=== PATIENT | male | born 1935 | race Caucasian/White ===

== ENCOUNTER 2019-11-29 01:07 | Observation (INO) | payer MEDICARE ==
[2019-11-29] MEDS ORDERED: Nitroglycerin 2% Ointment 1 INCH/1 GM Packet ONE (01:17)
[2019-11-29] MEDS ORDERED: Ondansetron ODT 4 MG TAB SL PRN (03:28)
[2019-11-29] MEDS ORDERED: Acetaminophen 325 MG TAB PO PRN (03:28)
[2019-11-29] MEDS ORDERED: Ondansetron PF 4 MG/2 ML Vial IVP PRN ×2 (03:28→09:54)
[2019-11-29 03:47] VITALS: BMI 26.9
[2019-11-29 05:44] LABS: Troponin I 0.041 ng/mL (< 0.028)
[2019-11-29] MEDS ORDERED: cloNIDine 0.1 MG TAB PO PRN (05:46)
[2019-11-29] MEDS ORDERED: hydrALAZINE 20 MG/ML VIAL SLOW IVP PRN ×2 (05:46→09:54)
[2019-11-29 08:48] LABS: Troponin I 0.032 ng/mL (< 0.028)
[2019-11-29] MEDS ORDERED: ADENOSINE 60 MG/20 ML VIAL ONE (09:53)
[2019-11-29] MEDS ORDERED: Acetaminophen 500 MG TAB PO PRN (09:54)
[2019-11-29] MEDS ORDERED: Labetalol HCl 100 MG/20 ML VIAL SLOW IVP PRN (09:54)
[2019-11-29] MEDS ORDERED: Nitroglycerin 0.4 MG TAB (25 Tab Bottle) SL PRN (09:54)
[2019-11-29] MEDS ORDERED: Ondansetron ODT 4 MG TAB PO PRN (09:54)
[2019-11-29] MEDS ORDERED: hydrALAZINE 25 MG TAB PO SCH (11:30)
--- NOTE | 2019-11-29 12:26 | HP ---
PRIMARY CARE PROVIDER: Formally, Dr. Barrett Vela. PRIMARY CORRECTIONAL LIEUTENANT: Paul Morgan MD CHIEF COMPLAINT: Dizziness and near-syncope. HISTORY OF PRESENT ILLNESS: This is an 84-year-old male, who initially presented to [facility] after noticing his blood pressure was elevated in the 225/110 range at home. The patient states he has felt intermittent dizziness and near syncopal events over the last week while ambulating or doing regular activities. The patient denied any margarito loss of consciousness, chest pain, lower extremity edema, unilateral weakness or difficulty with speech. The patient states that he was attending a Boat Show in [place], [place] within the last week, but felt the sensation of dizziness and near-syncope. At which point, he sat down and rested. The patient states the symptoms resolved after resting, but then came back after he ambulated to his vehicle. The patient states sensation of generalized weakness in his head, feeling dizzy during these episodes, but denied any visual disturbance or margarito loss of consciousness. The patient states he had not filled a prescription of metoprolol due to an error on his part, but denied any other change to his chronic medication regimen. The patient does state he has taken [id number] motion sickness medication for intermittent nausea. The patient denied any fever, chills, exposure history, or family members with similar symptoms. The patient states he is generally active at home without history of falls or injury. In the emergency room, the patient underwent general evaluation including EKG showing no acute ST-T wave changes. The patient received IV labetalol as well as nitro paste, clonidine, and aspirin 325 mg. The patient was transferred to [facility] and was referred to the Hospitalist Service for evaluation. The patient does state he was recently evaluated by his primary director medicare sales earlier in November and given a general clean bill of health. PAST MEDICAL HISTORY: 1. Coronary artery disease, status post coronary artery bypass grafting. 2. Hypertension. 3. Benign prostatic hyperplasia. 4. Aortic aneurysm, status post repair. 5. Hyperlipidemia. PAST SURGICAL HISTORY: 1. Status post L-spine surgery. 2. Status post coronary artery bypass grafting. 3. Status post abdominal aortic aneurysm repair. CURRENT MEDICATIONS: 1. Enteric-coated aspirin 81 mg p.o. daily. 2. Lipitor 80 mg p.o. daily. 3. Zetia 10 mg p.o. daily. 4. Finasteride 5 mg p.o. daily. 5. Hydralazine 25 mg p.o. b.i.d. 6. Lisinopril 40 mg p.o. daily. 7. Toprol-XL 50 mg p.o. daily, not currently taking. 8. Klor-Con 10 mEq p.o. b.i.d. 9. Flomax 0.4 mg p.o. daily. ALLERGIES: NO KNOWN DRUG ALLERGIES. FAMILY HISTORY: Father at 87 years of age. Mother at 87 years of age after CVA. SOCIAL HISTORY: Resides in [place], [place]. Retired. Lives independently. No current alcohol, tobacco, or illicit drug use. REVIEW OF SYSTEMS: CONSTITUTIONAL: Negative for weight loss or gain, ability to conduct usual activities. SKIN: Negative for rash, itching. EYES: Negative for double vision, pain. ENT/MOUTH: Negative for nose bleeding, neck stiffness, pain, tenderness. CARDIOVASCULAR: Negative for palpitations, dyspnea on exertion, orthopnea. RESPIRATORY: Negative for shortness of breath, wheezing, cough, hemoptysis, fever or night sweats. GASTROINTESTINAL: Negative for poor appetite, abdominal pain, heartburn, nausea, vomiting, constipation, or diarrhea. GENITOURINARY: Negative for urgency, frequency, dysuria, nocturia. MUSCULOSKELETAL: Negative for pain, swelling. NEUROLOGIC/PSYCHIATRIC: Negative for anxiety, depression. ALLERGY/IMMUNOLOGIC: Negative for skin rash, bleeding tendency. Otherwise, negative except as stated per HPI. PHYSICAL EXAMINATION: VITAL SIGNS: On admission, blood pressure 152/80, pulse 53, respiratory rate 16, temperature 97.5 degrees Fahrenheit, and O2 saturation 100% on room air. GENERAL APPEARANCE: This is an 84-year-old male, alert and oriented x3, pleasant, responsive, in no acute distress. HEENT: Pupils are equal, round, and reactive to light and accommodation. Extraocular muscles are intact. No scleral icterus. No conjunctival injection. Nares patent. OP is clear. Teeth in good repair. NECK: Supple. No cervical adenopathy. No thyromegaly. No carotid bruits. No JVD appreciated. Cervical spine with full active and passive range of motion. No meningeal signs noted. CHEST: Lungs are clear to auscultation bilaterally. CARDIOVASCULAR: S1 and S2 without noted murmur, rub, or gallop. ABDOMEN: Rounded, soft, nontender, and nondistended. Bowel sounds are positive in all 4 quadrants. There is no palpable mass. No hepatosplenomegaly. No abdominal bruits. EXTREMITIES: Warm and dry with good turgor. No clubbing, cyanosis, or asymmetric edema appreciated. Pulses palpable distally at the dorsalis pedis, posterior tibial, and popliteal arteries bilaterally. Capillary refill less 2 seconds. NEUROLOGIC: Cranial nerves II through XII are grossly intact. No focal or lateralizing signs appreciated. PERTINENT LABORATORY AND X-RAY FINDINGS: Creatinine 1.22, estimated GFR 57. LFTs within normal limits. Troponin I ranged between 0.032 to 0.052. Total cholesterol 129, triglycerides 165, HDL 36, and LDL 60 from 11/09/2019. CBC showed a white blood cell count of 4.5, hemoglobin 12.4, hematocrit 39, and platelet count 161 with normal differential. EKG dated 11/29/2019 by my interpretation shows sinus mechanism with sinus arrhythmia with heart rates in the 60s. Attenuated R-waves noted in the precordial leads. Normal axis. No acute ST-T wave changes appreciated. ASSESSMENT AND PLAN: 1. Hypertensive urgency. Blood pressure trend improved currently. We will continue hydralazine and labetalol IV as needed for systolic greater than or equal to 170. Confirm home medication regimen. Resume Toprol-XL 50 mg p.o. daily prior to discharge. 2. Elevated troponin I. Suspect secondarily to hypertensive urgency with demand ischemia. We will proceed with Cardiolite stress testing to rule out ischemia. Consult Cardiology Service for any further recommendations. We will obtain outpatient echocardiogram, which was performed in the last 4 weeks. 3. Near-syncope. Suspect secondarily to hypertensive urgency. Check carotid Doppler study to rule out focal stenosis. Continue telemetry monitoring to rule out underlying arrhythmia. 4. Hyperlipidemia. Continue Lipitor 80 mg p.o. daily. 5. Prophylaxis. SCDs while in bed. Pepcid 20 mg p.o. b.i.d. 6. Code status is full. Surrogate medical decision maker is the patient's son. Job ID: [id number]
--- NOTE | 2019-11-29 15:51 | NM ---
EXAM: NM Cardiac Stress W EF WF PROVIDED CLINICAL HISTORY: Chest pain COMPARISON: None RADIOPHARMACEUTICAL: 31.3 millicuries technetium 99m labeled sestamibi IV stress 9 millicuries technetium 99m labeled sestamibi IV rest FINDINGS: There is normal, homogeneous distribution of radiotracer throughout the left ventricular myocardium. Gated data demonstrate normal myocardial wall motion and thickening with calculated LVEF 66%. Calculated TID is 1.14. IMPRESSION: 1. No scintigraphic evidence for ischemia. 2. Calculated LVEF 66%.
[2019-11-29] MEDS ORDERED: Lisinopril 20 MG TAB PO SCH (16:45)
[2019-11-29] MEDS ORDERED: Nitroglycerin 2% Ointment 1 INCH/1 GM Packet TOP SCH (18:30)
[2019-11-29] MEDS: hydrALAZINE 25 MG TAB PO SCH (20:10)
[2019-11-29] MEDS: Famotidine 20 MG TAB PO SCH (20:10)
[2019-11-29] MEDS: Potassium Chloride 10 MEQ TAB PO SCH (20:10)
--- NOTE | 2019-11-29 20:41 | CON ---
DATE OF CONSULTATION: 11/29/2019 INDICATION FOR CONSULTATION: An 84-year-old patient with hypertension, hypertensive urgency, presyncopal episodes and some slight elevation of cardiac enzymes with a history of coronary artery disease in the past. HISTORY OF PRESENT ILLNESS: This very pleasant gentleman who is 84 years old and followed by Dr. Morgan in the past. He has undergone bypass surgery. He was with his sons on Saturday at a boat show in [place]. He became presyncopal. His blood pressure was significantly elevated. It did not settle down and then yesterday he went shopping at [employer] and also blood pressure was again elevated. It resolved again after a while he went home and again the blood pressure was elevated and it is one of his sons insisted that he go to the emergency room. On arrival in the emergency room, apparently his blood pressure was 225/110. At that time, he also felt some dizziness, but did not have any margarito syncopal episode. He has had bypass surgery in the past. He also has had a history of hypertension as well as benign prostatic hypertrophy and he has an aortic aneurysm, which was of concern with the hypertension. He also has hyperlipidemia. However, he had not been taking his metoprolol for several days. He had run out of the medication, but this time he denied any chest pain and otherwise appears to be stable. He did undergo stress testing, which shows no evidence of ischemia. PAST MEDICAL HISTORY: Significant for coronary artery disease and bypass surgery as noted above, hypertension, benign prostatic hypertrophy. He has had aortic aneurysm repair and hyperlipidemia. He has also had the spine surgery and also a stat abdominal aortic aneurysm repair. MEDICATIONS: Please refer the notes dictated by my nurse practitioner. ALLERGIES: PLEASE REFER THE NOTES DICTATED BY MY NURSE PRACTITIONER. FAMILY HISTORY: Please refer the notes dictated by my nurse practitioner. SOCIAL HISTORY: Please refer the notes dictated by my nurse practitioner. REVIEW OF SYSTEMS: Please refer the notes dictated by my nurse practitioner. His review of systems is relatively unremarkable except what was noted in the history of present illness for an 84-year-old gentleman. He still remains relatively active. PHYSICAL EXAMINATION: GENERAL: Reveals a well-developed, well-nourished gentleman who is in no acute distress. VITAL SIGNS: At this time, his blood pressure is slightly improved at 168/79, it has been fluctuating some during the day, it had been as low as 132/71 and then increased back up again. It had been as high as 184/86, early this afternoon. Otherwise, heart rate is in the 60s and shows a sinus rhythm, respiratory rate about is 16. He is afebrile and O2 saturation is 98%. HEENT: Shows the head to be normocephalic and atraumatic. NECK: Carotid pulses are present. There were no bruits. CHEST: Clear to auscultation without rales, rhonchi, or wheezing. He has a well-healed midline surgical incision after median sternotomy. CARDIOVASCULAR: Otherwise reveals a regular rhythm. I do not hear any harsh murmurs. There were no heaves or thrills. ABDOMEN: Soft and nontender. Positive bowel sounds are present. EXTREMITIES: Showed no clubbing, cyanosis, or edema. Pedal pulses are present. NEUROLOGIC: The patient appears to be fully intact. There were no gross focal motor deficits. LABORATORY DATA: Troponin I was 0.039, increased up to 0.041 and then down to 0.032 again. His creatinine was 1.22 with a BUN of 25. Sodium was 144, potassium is 3.5. His LDL level the end of October was 60. His hemoglobin is 12.4 with hematocrit of 39.3 and a white count of 4.5 with a platelet count of 161,000. IMPRESSION: 1. Elderly gentleman with presyncopal episode, which may be associated with hypertension. He had not been taking his metoprolol. We reinstated this medication. We will also continue his other medications for his prostate, which will also help lower the blood pressure. We will continue to monitor this. He also has p.r.n. hydralazine and we have increased the dose of his lisinopril. He is on 40 mg a day. He has also been given nitroglycerin paste to help with the systolic blood pressure this evening and we will continue to monitor the blood pressure and readjust medications as indicated. 2. History of coronary artery disease and bypass surgery. This has remained stable. He had a negative stress test today and otherwise remained stable. 3. Benign prostatic hypertrophy. He is to continue on this medications. 4. Hyperlipidemia. We will continue on his statin medication. He is taking atorvastatin. Otherwise, this gentleman from a cardiac standpoint appears to be stable except for the hypertension. Dr. Morgan will resume his care tomorrow. Job ID: [id number]
[2019-11-29] MEDS: Nitroglycerin 2% Ointment 1 INCH/1 GM Packet TOP SCH (20:46)
[2019-11-29] MEDS ORDERED: Atorvastatin Calcium 40 MG TAB PO SCH (21:00)
--- NOTE | 2019-11-29 21:54 | CON ---
DATE OF CONSULTATION: PRIMARY CARE DOCTOR: Dr. Hyde Head. PRIMARY INSURANCE AGENCY SALES MANAGER: Dr. Morgan. REASON FOR CARDIOLOGY CONSULTATION: Hypertensive urgency, elevated troponin. HISTORY OF PRESENT ILLNESS: Mr. Streeter is a very present 84-year-old male with a significant history of coronary artery disease with status post coronary artery bypass graft x6 in 2002, hypertension, BPH, aortic aneurysm with status post repair in March [address] Borden, hyperlipidemia, postop atrial fibrillation in 2002. The patient was doing relatively well when the patient followed up with Dr. Morgan on November 12. The patient's blood pressure is stable, 135 on the systolic side. At that time, the patient denied any cardiac complaints. However, yesterday evening, when he was shopping at the [employer], he started feeling fuzzy-like feeling with feeling heaviness in both arm and slight headache and sudden weakness. He sat down in the [employer] for 20 minutes. When the patient's symptoms improved, he walked back to his car and he started having the similar symptoms. He sat in the car for 20 minutes again and he went home. His blood pressure when he got home was 225/114, and the patient's son called the ambulance. The patient was transferred to the emergency department. During the episode, the patient denied chest pain, heaviness, tightness, palpitation, fluttering in his chest or shortness of breath, or any other complaints. The patient did not have a dizziness at that time; however, he had intermittent motion-like sickness. He takes motion sickness [id number] medication. At this moment, the patient denied any a fuzzy-like feeling or heaviness in his arm, or headache, or weakness. The patient had echocardiograms done in October 2019 with EF 50% to 55%, grade 1 diastolic dysfunction, moderate aortic regurgitation, mild mitral valve regurgitation, tricuspid regurgitation, and pulmonic valve regurgitation. The patient's stress test was done today with no reversible ischemia with EF 66%. Carotid Doppler was ordered and the results are pending at this moment. His blood pressure is still elevated. All home medication was resumed from today except the patient's metoprolol is on hold due to bradycardia. PAST MEDICAL HISTORY: 1. Coronary artery disease with status post CABG. 2. Hypertension. 3. BPH. 4. Aortic aneurysm with repair. 5. Hyperlipidemia. 6. Postop atrial fibrillation. PAST SURGICAL HISTORY: 1. Lumbar spine surgery. 2. Coronary artery bypass graft x6 in 2002 with BECKETT to LAD, and diagonal 1, and SVG to PDA, OM1, OM2; and left radial to ramus and the patient is post abdominal aneurysm repair, aortic aneurysm repair in March 2014. FAMILY HISTORY: The patient's father at the age of 87. The patient's mother at the age of 87, also after CVA. SOCIAL HISTORY: He is a . He lives with his son. He is an ex-smoker, who quit in 1991, but he continued chewing tobacco. He drinks 2 fingers of Tequila every 2 to 3 weeks. He denied illicit drug abuse. ALLERGIES: HE HAS NO KNOWN DRUG ALLERGIES. HOME MEDICATIONS: 1. Atorvastatin 80 mg once a day. 2. Lisinopril 40 mg once a day. 3. Flomax 0.4 mg once a day. 4. Potassium chloride 10 mEq one tablet twice a day. 5. Lasix 20 mg once a day. 6. Zetia 10 mg once a day. 7. Finasteride 5 mg once a day. 8. Metoprolol 50 mg once a day. 9. Hydralazine 25 mg 1 tablet once a day; however, according Dr. Morgan's notes, the patient is supposed to take it twice a day. REVIEW OF SYSTEMS: 12-point review of systems negative unless otherwise mentioned in the HPI. PHYSICAL EXAMINATION: VITAL SIGNS: Blood pressure is 184/63, temperature 97.3, pulse 64, respiratory rate 16, O2 saturation 99% with room air. GENERAL: The patient is alert and oriented x4, not in acute distress. HEENT: Normocephalic, atraumatic. EYES: Extraocular muscle movement intact. ENT AND MOUTH: Oral and nasal mucosa moist without lesions. NECK: Supple. Normal range of motion. No JVD. RESPIRATORY: Clear to auscultate bilaterally. No wheezing, rales, or rhonchi noted. CARDIOVASCULAR: Regular rate and rhythm. Normal S1, S2. No S3 or S4. No significant murmur, hives, or thrill noted. 2+ pulses in bilateral upper and lower extremities. No edema in the lower extremities. Carotid pulses are present without bruits. ABDOMEN: Soft, nontender. No mass to palpitate. No bowel sounds are present. MUSCULOSKELETAL: The patient able to move all extremities without difficulty. The patient denied claudication. SKIN: Warm and dry. No rash or lesion or erythema noted. NEUROLOGIC: The patient is alert and oriented x4, nonfocal. PSYCHIATRIC: The patient's mood is appropriate. LABORATORY DATA: WBC 4.5, hemoglobin is 12.4, hematocrit 39.3, platelet 161. Sodium 144, potassium 3.5, BUN 25, creatinine 1.22, glucose 132, calcium 8.4, AST 13, ALT 12. CK is 74 and CK-MB is 2.1. Troponin is 0.039, 0.041, 0.032. Total cholesterol 129, triglyceride 165, HDL 36, and LDL 60, and a PSA is 6.53. The patient's chest x-ray showed no acute cardiopulmonary process. ASSESSMENT AND PLAN: 1. Hypertensive urgency. The patient's last blood pressure was 184/86. The patient's home medication resumed from today. Hopefully, the patient's blood pressure is going to be stable. Otherwise, may be beneficial to start calcium channel ubaldo. The patient is not on beta-ubaldo, metoprolol succinate 50 mg once a day at this moment due to bradycardia. The patient is asymptomatic. We would like to continue to monitor. 2. Indeterminate troponin level, possible type 2 [id number] myocardial infarction, which is caused by hypertensive urgency. The patient's stress test is normal. Echocardiogram in October 2019 showed a normal ejection fraction with possible diastolic dysfunction. The patient has been on aspirin, atorvastatin 80 mg once a day, Zetia, lisinopril, and metoprolol. Once the patient's vital signs, especially the patient's heart rate is stable, we would like the metoprolol succinate will be resumed. 3. Coronary artery disease with status post CABG x6 in 2002. The patient's condition is stable at this moment. Again, the patient's stress test today showing normal. The patient is asymptomatic. 4. Hyperlipidemia. The patient is on atorvastatin and Zetia. 5. Postop atrial fibrillation. The patient has been in sinus rhythm during this admission and the patient's last office visit at Dr. Morgan's office on November 12, 2019 shows the patient has a regular heart rhythm and normal S1, S2. 6. Status post abdomen aortic aneurysm repair in March 2014. There are no records that have shown the patient has any further followup with CT scan or any exam on abdomen. However, the patient has good pulses and good blood return to the lower extremities. The patient denied any abdominal pain at this moment, and benign prostatic hyperplasia, which is managed by primary care doctor. 7. Possible dizziness. The patient's condition is stable at this moment. The patient's dizziness is possibly coming from hypertensive urgency or vertigo because the patient has continued having the intermittent motion sickness like dizziness. He is on the motion sickness medication, OTC. Thank you very much for allowing the Cardiology Service to participate in the care of this patient. We will follow along the patient's care team and make a further recommendation as appropriate, but however, from tomorrow, Dr. Morgan will follow with this patient. Job ID: [id number]
--- NOTE | 2019-11-29 23:22 | ULT ---
Ultrasound Doppler duplex carotid: DATE: 11/29/2019 HISTORY: 84-year-old hypertensive male presents with dizziness TECHNIQUE: Grayscale, color-flow, and spectral analysis, of major arteries of neck. FINDINGS: Vertebral artery flow is antegrade bilaterally. Mild atherosclerosis at partial internal carotids. Highest peak systolic velocities in the internal carotid arteries are 55 cm/s on the right and 75 cm/ s on the left. IMPRESSION: No hemodynamically significant stenosis.
[2019-11-30] MEDS: Nitroglycerin 2% Ointment 1 INCH/1 GM Packet TOP SCH (04:39)
[2019-11-30 05:34] LABS: Eosinophils 7 % (0-10); Hemoglobin 12.1 g/dL (14.0-18.0); Lymphocytes 14 % (21-51); MDiff Complete? YES; Mean Corpuscular HGB CONC 33.7 g/dL (32.0-36.0); Mean Corpuscular Hemoglobin 32.7 pg (27.0-31.0); Mean Corpuscular Volume 97.2 fL (78.0-98.0); Mean Platelet Volume 7.3 fL (7.4-10.4); Monocytes 14 % (0-10); Neutrophil 64 % (42-75); Platelet Count 159 thou/uL (130-400); RBC Distribution Width 12.6 % (11.5-14.5); White Blood Cell (WBC) Count 5.3 thou/uL (4.8-10.8)
[2019-11-30 05:42] LABS: Anion Gap 11 mmol/L (10-20); BUN (Urea Nitrogen) 25 mg/dL (8.4-25.7); Calc. Creatinine Clearance 67 mL/min (70-130); Calcium 8.2 mg/dL (7.8-10.44); Carbon Dioxide 27 mmol/L (23-31); Chloride 105 mmol/L (98-107); Estimated GFR-MDRD 66; Glucose 100 mg/dL (83-110); Potassium 3.6 mmol/L (3.5-5.1); Sodium 139 mmol/L (136-145)
[2019-11-30 08:03] VITALS: TEMP 97.5
[2019-11-30] MEDS: Potassium Chloride 10 MEQ TAB PO SCH (08:36)
[2019-11-30] MEDS: hydrALAZINE 25 MG TAB PO SCH (08:36)
[2019-11-30] MEDS: Famotidine 20 MG TAB PO SCH (08:36)
[2019-11-30] MEDS ORDERED: Lisinopril 20 MG TAB PO SCH (09:00)
[2019-11-30] MEDS ORDERED: Aspirin 81 mg Enteric Coated Tablet PO SCH (09:00)
[2019-11-30] MEDS ORDERED: Ezetimibe 10 MG TAB PO SCH (09:00)
[2019-11-30] MEDS ORDERED: Finasteride 5 MG TAB PO SCH (09:00)
[2019-11-30] MEDS ORDERED: Tamsulosin HCl 0.4 MG CAP PO SCH (09:00)
[2019-11-30 14:01] VITALS: BP 169/84
[2019-11-30] MEDS ORDERED: hydrALAZINE 25 MG TAB PO SCH (15:00)
--- NOTE | 2019-11-30 21:59 | DIS ---
DATE OF ADMISSION: 11/29/2019 DATE OF DISCHARGE: 11/30/2019 DISCHARGE DIAGNOSES: 1. Hypertensive urgency, resolved. 2. Elevated troponin I, secondary to demand ischemia and #1. 3. Near syncope, secondary to hypertensive urgency. 4. Hyperlipidemia. CONSULTATIONS: Dr. Tavares and Dr. Morgan with Cardiology Service. PERTINENT LABORATORY AND X-RAY FINDINGS: Troponin I ranged between 0.03 to 0.041. Portable chest x-ray dated 11/28/2019, showed no acute cardiopulmonary process. Cardiolite stress test dated 11/29/2019, showed no evidence of reversible ischemia with calculated ejection fraction of 66%. Carotid Doppler study dated 11/29/2019, showed no hemodynamically significant stenosis. HOSPITAL COURSE: The patient was initially admitted after presenting with dizziness, vertigo, and hypertensive urgency. The patient was initiated on metoprolol 50 mg daily in addition to lisinopril 40 mg daily and hydralazine 25 mg b.i.d. The patient was increased on hydralazine to 25 mg t.i.d. with overall improvement and blood pressure trend. Telemetry monitoring showed sinus mechanism without evidence of acute arrhythmia or dysrhythmia. Cardiolite stress testing was performed showing no evidence of ischemia. The patient overall remained clinically stable with titration of his blood pressure regimen. I have examined the patient at the time of discharge and discussed followup instructions. The patient verbalized understanding and agreement ready for discharge on 11/30/2019. DISCHARGE MEDICATIONS: 1. Enteric-coated aspirin 81 mg p.o. daily. 2. Lipitor 80 mg p.o. daily. 3. Zetia 10 mg p.o. daily. 4. Finasteride 5 mg p.o. daily. 5. Lisinopril 40 mg p.o. daily. 6. Klor-Con 10 mEq p.o. b.i.d. 7. Flomax 0.4 mg p.o. daily. 8. Hydralazine 25 mg p.o. t.i.d. 9. Metoprolol succinate 50 mg p.o. daily. FOLLOWUP: The patient may follow up with Dr. Paul Morgan and to call his office for appointment time and date. CONDITION ON DISCHARGE: Stable. ACTIVITY: Ad-vani. DIET: Heart healthy. CODE STATUS: Full. DISPOSITION: To home, 11/30/2019. Job ID: [id number]
--- NOTE | 2019-12-03 08:50 | STRESS ---
Acquisition Time: 2019-11-29 13:58:07 Total Exercise Time: 00:03:16 Test Indications: CHEST PAIN Medications: Protocol: MODBRUCE Max HR: 094 BPM 68% of Pred: 137 BPM Max BP: 168/090 mmHG Max Work Load: 1.7 METS RESTING ECG: NORMAL SINUS RHYTHM AT 70 BPM SYMPTOMS: SOB APPROPRIATE BP RESPONSE FOR ADENOSINE ECTOPY: NONE ECG STRESS: NO SIGNIFICANT CHANGES INTERPRETATION: NEGATIVE/AWAIT NUCLEAR IMAGES FOR DEFINITIVE DIAGNOSIS Confirmed by REJI STARK ([id number]), slot editor ABENA RIOJAS ([id number]) on 12/03/2019 8:49:41 AM Referred By: Davi MAGANA Confirmed By:REJI STARK
== END 2019-11-30 15:01 | disposition home or self-care (01) ==
LOC: ERS 01:07 → 2SW 02:43
PROVIDERS: ADMIT Internal Medicine; ATTEND Internal Medicine
DX: I16.0 Hypertensive urgency (principal); I10 Essential (primary) hypertension; I25.10 Atherosclerotic heart disease of native coronary artery without angina pectoris; E78.5 Hyperlipidemia, unspecified; N40.0 Benign prostatic hyperplasia without lower urinary tract symptoms; F17.220 Nicotine dependence, chewing tobacco, uncomplicated; Z79.82 Long term (current) use of aspirin; Z79.899 Other long term (current) drug therapy; Z95.1 Presence of aortocoronary bypass graft
CPT/HCPCS: 78452; 80048; 84484 ×2; 85007; 85027; 93005; 93017; 93880; 99285; A9500; 36415; 96374; G0378; J0153; J0360

== ENCOUNTER 2021-04-21 10:33 | Inpatient (IN) | payer MEDICARE ==
[2021-04-21 11:07] LABS: #Eosinphils 0.2 thou/uL (0.0-0.7); #Lymphocytes 0.7 thou/uL (1.20-3.40); #Monocytes 0.4 thou/uL (0.11-0.59); #Neutrophils 3.6 thou/uL (1.40-6.50); %Basophils 0.5 % (0.0-1.0); %Eosinophils 4.8 % (0.0-10.0); %Lymphocytes 14.4 % (21.0-51.0); %Monocytes 7.2 % (0.0-10.0); %Neutrophils 73.1 % (42.0-75.0); Mean Corpuscular HGB CONC 32.8 g/dL (32.0-36.0); Mean Corpuscular Hemoglobin 32.7 pg (27.0-31.0); Mean Corpuscular Volume 99.5 fL (78.0-98.0); Mean Platelet Volume 6.7 fL (7.4-10.4); Platelet Count 276 thou/uL (130-400); RBC Distribution Width 13.1 % (11.5-14.5); Red Blood Cell (RBC) Count 2.75 mill/uL (4.70-6.10)
[2021-04-21 11:32] LABS: ALT (SGPT) Less than 7 U/L (8-55); AST (SGOT) 9 U/L (5-34); Albumin 3.6 g/dL (3.4-4.8); Alkaline Phosphatase 86 U/L (40-110); Anion Gap 10 mmol/L (10-20); BUN (Urea Nitrogen) 22 mg/dL (8.4-25.7); Bilirubin, Total 0.7 mg/dL (0.2-1.2); Calc. Creatinine Clearance 0 mL/min (70-130); Calcium 8.8 mg/dL (7.8-10.44); Carbon Dioxide 26 mmol/L (23-31); Chloride 108 mmol/L (98-107); Globulin 2.9 g/dL (2.4-3.5); Glucose 136 mg/dL (83-110); Potassium 3.8 mmol/L (3.5-5.1); Protein, Total 6.5 g/dL (5.8-8.1); Sodium 140 mmol/L (136-145)
[2021-04-21 12:03] LABS: INR-International Normal Ratio 1.1; Prothrombin Time 14.4 sec (12.0-14.7)
[2021-04-21 12:04] LABS: PTT 26.4 sec (22.9-36.1)
[2021-04-21 12:05] LABS: Iron 27 ug/dL (65-175); Iron Binding Capacity, Total 386 mcg/dL (261-462)
[2021-04-21] MEDS ORDERED: Ondansetron ODT 4 MG TAB PO PRN (14:22)
[2021-04-21] MEDS ORDERED: Calcium Carbonate 500 MG ChewTAB PO PRN (14:22)
[2021-04-21] MEDS ORDERED: Acetaminophen 325 MG TAB PO PRN (14:22)
[2021-04-21] MEDS ORDERED: Ondansetron PF 4 MG/2 ML Vial IVP PRN (14:22)
[2021-04-21] MEDS ORDERED: Electrolyte Replacement Protocol 1 EACH FS SCH (14:30)
[2021-04-21] MEDS ORDERED: Sodium Chloride 0.9% 1,000 ML IV SCH (14:30)
[2021-04-21 14:45] LABS: Troponin I Less than 0.010 ng/mL (< 0.028)
[2021-04-21] MEDS ORDERED: Electrolyte Replacement Protocol FS PRN (14:45)
[2021-04-21] MEDS ORDERED: cefTRIAXone\\ROCEPHIN 1 GM VIAL ONE (14:57)
[2021-04-21] MEDS ORDERED: Labetalol HCl 100 MG/20 ML VIAL SLOW IVP PRN (14:59)
[2021-04-21] MEDS ORDERED: Fentanyl 100 MCG/2 ML VIAL ONE (15:14)
[2021-04-21] MEDS ORDERED: PHENYLEPHRINE-NS 100 MCG/ML 10 ML SYRINGE ONE (16:02)
[2021-04-21] MEDS ORDERED: Dexamethasone 20 MG/5 ML VIAL ONE (16:02)
[2021-04-21] MEDS ORDERED: Succinylcholine 200 MG/10 ml SYRINGE FS ONE (16:02)
[2021-04-21] MEDS ORDERED: Glycopyrrolate 0.2 MG/ML 5 ML SYRINGE ONE (16:02)
[2021-04-21] MEDS ORDERED: PROPOFOL 200 MG/20 ML VIAL ONE (16:02)
[2021-04-21] MEDS ORDERED: Rocuronium Bromide 10 MG/ML (10ML VIAL) ONE (16:02)
[2021-04-21] MEDS ORDERED: Lidocaine 1% PF 5 ML VIAL ONE (16:02)
[2021-04-21] MEDS ORDERED: Ondansetron PF 4 MG/2 ML Vial ONE (16:02)
[2021-04-21] MEDS ORDERED: Ondansetron HCl/PF 4 MG/2 ML Vial IVP PRN (18:25)
[2021-04-21] MEDS ORDERED: Promethazine HCl 25 MG/ML VIAL SLOW IVP PRN (18:25)
[2021-04-21] MEDS ORDERED: Meperidine HCl/PF 25 MG/ML VIAL SLOW IVP PRN (18:25)
[2021-04-21] MEDS ORDERED: HYDROmorphone 2 MG/ML VIAL SLOW IVP PRN (18:25)
[2021-04-21 19:35] LABS: #Eosinphils 0.1 thou/uL (0.0-0.7); #Lymphocytes 0.6 thou/uL (1.20-3.40); #Monocytes 0.2 thou/uL (0.11-0.59); #Neutrophils 8.2 thou/uL (1.40-6.50); %Eosinophils 0.8 % (0.0-10.0); %Lymphocytes 6.5 % (21.0-51.0); %Monocytes 1.8 % (0.0-10.0); %Neutrophils 90.8 % (42.0-75.0); Hemoglobin 9.2 g/dL (14.0-18.0); Mean Corpuscular HGB CONC 32.8 g/dL (32.0-36.0); Mean Corpuscular Hemoglobin 32.4 pg (27.0-31.0); Mean Corpuscular Volume 98.8 fL (78.0-98.0); Mean Platelet Volume 6.8 fL (7.4-10.4); Platelet Count 201 thou/uL (130-400); Red Blood Cell (RBC) Count 2.83 mill/uL (4.70-6.10)
[2021-04-21] MEDS: Senokot S 8.6-50 MG TAB PO SCH (21:53)
[2021-04-21] MEDS: Atorvastatin Calcium 40 MG TAB PO SCH (21:53)
[2021-04-21] MEDS: Cyanocobalamin 1000 MCG/ML VIAL IM SCH (21:54)
[2021-04-21] MEDS: Famotidine 20 MG TAB PO SCH (21:54)
[2021-04-21] MEDS: Sodium Chloride 0.9% 1,000 ML IV SCH (22:08)
[2021-04-21 22:37] LABS: Hemoglobin 9.1 g/dL (14.0-18.0)
[2021-04-22 03:05] LABS: Bilirubin Negative (Negative); Blood, Urine Large (Negative); Glucose, Urine (Dipstick) Negative (Negative); Ketone, Urine Negative (Negative); Leukocyte Negative (Negative); Nitrite Negative (Negative); Protein, Urine (Dipstick) 30 mg/dL (Neg-Trace); Urobilinogen 0.2 mg/dL (Less than 2); pH, Urine 5.5 (5.0-9.0)
[2021-04-22 03:08] LABS: Bacteria/HPF None Seen HPF (None Seen); RBC/HPF Greater than 50 HPF (0-3); Squamous Epithelial 0-3 HPF (0-3); WBC/HPF None Seen HPF (0-3)
[2021-04-22 03:09] LABS: Clarity Cloudy (Clear)
[2021-04-22 04:19] VITALS: BMI 26.2
[2021-04-22 04:33] LABS: #Lymphocytes 0.5 thou/uL (1.20-3.40); #Monocytes 0.2 thou/uL (0.11-0.59); #Neutrophils 6.3 thou/uL (1.40-6.50); %Basophils 0.1 % (0.0-1.0); %Eosinophils 0.1 % (0.0-10.0); %Lymphocytes 7.2 % (21.0-51.0); %Monocytes 2.5 % (0.0-10.0); %Neutrophils 90.1 % (42.0-75.0); Hemoglobin 8.7 g/dL (14.0-18.0); Mean Corpuscular HGB CONC 33.8 g/dL (32.0-36.0); Mean Corpuscular Hemoglobin 32.8 pg (27.0-31.0); Mean Corpuscular Volume 97.2 fL (78.0-98.0); Platelet Count 196 thou/uL (130-400); RBC Distribution Width 14.1 % (11.5-14.5); Red Blood Cell (RBC) Count 2.63 mill/uL (4.70-6.10)
[2021-04-22 04:53] LABS: Anion Gap 10 mmol/L (10-20); BUN (Urea Nitrogen) 26 mg/dL (8.4-25.7); Calc. Creatinine Clearance 53 mL/min (70-130); Calcium 7.6 mg/dL (7.8-10.44); Carbon Dioxide 22 mmol/L (23-31); Chloride 112 mmol/L (98-107); Glucose 155 mg/dL (83-110); Magnesium 1.7 mg/dL (1.6-2.6); Potassium 4.4 mmol/L (3.5-5.1); Sodium 140 mmol/L (136-145)
[2021-04-22] MEDS ORDERED: Magnesium 2 GM/50 ML 2 GM in Premix Bag 1 BAG IVPB SCH (06:15)
[2021-04-22] MEDS: Cyanocobalamin (Vitamin B-12) 1,000 MCG TAB PO SCH (09:30)
[2021-04-22] MEDS: Senokot S 8.6-50 MG TAB PO SCH ×2 (09:38→21:46)
[2021-04-22] MEDS: Finasteride 5 MG TAB PO SCH (09:38)
[2021-04-22] MEDS: Famotidine 20 MG TAB PO SCH ×2 (09:38→21:46)
[2021-04-22] MEDS ORDERED: Iron, Sodium Ferric Gluconate 250 MG in Sodium Chloride 0.9% 250 ML 250 ML IVPB SCH (10:45)
[2021-04-22 11:09] LABS: Hemoglobin 8.4 g/dL (14.0-18.0)
[2021-04-22] MEDS: Sodium Chloride 0.9% 1,000 ML IV SCH (11:16)
[2021-04-22 16:46] LABS: Hemoglobin 8.8 g/dL (14.0-18.0)
[2021-04-22] MEDS: Digoxin 0.25 MG TAB PO SCH (17:50)
[2021-04-22] MEDS: Atorvastatin Calcium 40 MG TAB PO SCH (21:45)
[2021-04-22] MEDS: Cyanocobalamin 1000 MCG/ML VIAL IM SCH (21:46)
[2021-04-22 23:17] LABS: Hemoglobin 8.5 g/dL (14.0-18.0)
[2021-04-23] MEDS: Digoxin 0.25 MG TAB PO SCH ×3 (00:55→11:32)
[2021-04-23 04:51] LABS: #Eosinphils 0.3 thou/uL (0.0-0.7); #Lymphocytes 0.8 thou/uL (1.20-3.40); #Monocytes 0.8 thou/uL (0.11-0.59); #Neutrophils 6.4 thou/uL (1.40-6.50); %Basophils 0.1 % (0.0-1.0); %Eosinophils 3.1 % (0.0-10.0); %Lymphocytes 9.9 % (21.0-51.0); %Monocytes 9.6 % (0.0-10.0); %Neutrophils 77.4 % (42.0-75.0); Hemoglobin 8.4 g/dL (14.0-18.0); Mean Corpuscular Hemoglobin 32.6 pg (27.0-31.0); Mean Corpuscular Volume 98.7 fL (78.0-98.0); Mean Platelet Volume 7.3 fL (7.4-10.4); Platelet Count 205 thou/uL (130-400); RBC Distribution Width 14.2 % (11.5-14.5); Red Blood Cell (RBC) Count 2.58 mill/uL (4.70-6.10); White Blood Cell (WBC) Count 8.3 thou/uL (4.8-10.8)
[2021-04-23 05:27] LABS: Anion Gap 11 mmol/L (10-20); BUN (Urea Nitrogen) 21 mg/dL (8.4-25.7); Calc. Creatinine Clearance 59 mL/min (70-130); Calcium 7.6 mg/dL (7.8-10.44); Carbon Dioxide 22 mmol/L (23-31); Chloride 108 mmol/L (98-107); Glucose 101 mg/dL (83-110); Potassium 3.8 mmol/L (3.5-5.1); Sodium 137 mmol/L (136-145)
[2021-04-23] MEDS: Sodium Chloride 0.9% 1,000 ML IV SCH ×2 (06:26→16:09)
[2021-04-23] MEDS: Cyanocobalamin (Vitamin B-12) 1,000 MCG TAB PO SCH (09:11)
[2021-04-23] MEDS: Ferrous Sulfate 325 MG TAB PO SCH (09:11)
[2021-04-23] MEDS: Famotidine 20 MG TAB PO SCH ×2 (09:11→20:36)
[2021-04-23] MEDS: Finasteride 5 MG TAB PO SCH (09:11)
[2021-04-23] MEDS: Senokot S 8.6-50 MG TAB PO SCH ×2 (09:11→20:36)
[2021-04-23] MEDS: Calcium Carbonate 500 MG TAB PO SCH (16:09)
[2021-04-23] MEDS: Cyanocobalamin 1000 MCG/ML VIAL IM SCH (20:36)
[2021-04-23] MEDS: Atorvastatin Calcium 40 MG TAB PO SCH (20:36)
[2021-04-24 04:58] LABS: #Eosinphils 0.4 thou/uL (0.0-0.7); #Monocytes 0.7 thou/uL (0.11-0.59); %Basophils 0.3 % (0.0-1.0); %Eosinophils 5.3 % (0.0-10.0); %Lymphocytes 13.5 % (21.0-51.0); %Monocytes 10.3 % (0.0-10.0); %Neutrophils 70.7 % (42.0-75.0); Hemoglobin 8.1 g/dL (14.0-18.0); Mean Corpuscular HGB CONC 33.5 g/dL (32.0-36.0); Mean Corpuscular Hemoglobin 32.5 pg (27.0-31.0); Mean Corpuscular Volume 96.9 fL (78.0-98.0); Mean Platelet Volume 7.1 fL (7.4-10.4); Platelet Count 174 thou/uL (130-400); Red Blood Cell (RBC) Count 2.48 mill/uL (4.70-6.10); White Blood Cell (WBC) Count 7.1 thou/uL (4.8-10.8)
[2021-04-24] MEDS: Sodium Chloride 0.9% 1,000 ML IV SCH (05:15)
[2021-04-24 05:17] LABS: Anion Gap 10 mmol/L (10-20); BUN (Urea Nitrogen) 16 mg/dL (8.4-25.7); Calc. Creatinine Clearance 67 mL/min (70-130); Calcium 7.7 mg/dL (7.8-10.44); Carbon Dioxide 22 mmol/L (23-31); Chloride 110 mmol/L (98-107); Glucose 88 mg/dL (83-110); Potassium 3.7 mmol/L (3.5-5.1); Sodium 138 mmol/L (136-145)
[2021-04-24] MEDS: Senokot S 8.6-50 MG TAB PO SCH (08:21)
[2021-04-24] MEDS: Finasteride 5 MG TAB PO SCH (08:22)
[2021-04-24] MEDS: Cyanocobalamin (Vitamin B-12) 1,000 MCG TAB PO SCH (08:22)
[2021-04-24] MEDS: Famotidine 20 MG TAB PO SCH (08:22)
[2021-04-24] MEDS: Calcium Carbonate 500 MG TAB PO SCH ×2 (08:22→18:06)
[2021-04-24] MEDS: Ferrous Sulfate 325 MG TAB PO SCH (08:22)
[2021-04-24 20:02] VITALS: BP 131/87; TEMP 97.8
== END 2021-04-24 19:11 | disposition home or self-care (01) | DRG 713 ==
LOC: ERS 10:33 → SDC 15:12 → 2NO 16:00
PROVIDERS: ADMIT Internal Medicine; ATTEND Internal Medicine
PROC: 0VB08ZZ Excision of Prostate, Via Natural or Artificial Opening Endoscopic (ICD-10-PCS; principal; 2021-04-21)
PROC: 30233N1 Transfusion of Nonautologous Red Blood Cells into Peripheral Vein, Percutaneous Approach (ICD-10-PCS; 2021-04-21)
DX: N40.0 Benign prostatic hyperplasia without lower urinary tract symptoms (principal); N17.9 Acute kidney failure, unspecified; I13.0 Hypertensive heart and chronic kidney disease with heart failure and stage 1 through stage 4 chronic kidney disease, or unspecified chronic kidney disease; I50.32 Chronic diastolic (congestive) heart failure; D62 Acute posthemorrhagic anemia; I25.10 Atherosclerotic heart disease of native coronary artery without angina pectoris; E78.00 Pure hypercholesterolemia, unspecified; M19.90 Unspecified osteoarthritis, unspecified site; F17.220 Nicotine dependence, chewing tobacco, uncomplicated; I95.1 Orthostatic hypotension; N18.30 Chronic kidney disease, stage 3 unspecified; D63.1 Anemia in chronic kidney disease; H91.10 Presbycusis, unspecified ear; I48.91 Unspecified atrial fibrillation; E61.1 Iron deficiency; E53.8 Deficiency of other specified B group vitamins; E83.51 Hypocalcemia; Z79.82 Long term (current) use of aspirin; Z79.899 Other long term (current) drug therapy; Z95.1 Presence of aortocoronary bypass graft
CPT/HCPCS: 36415; 36430; 71045; 80048; 80053; 81003; 81015; 82533; 82607; 82728; 82746; 83540; 83550; 83735; 83880; 84484; 85025; 85610; 85730; 86850; 86900; 86901; 88305; 93005; 96365; J0696; J1100; J2405; J2704; J2916; J3010; J3420; J3475; J7050; P9016

== ENCOUNTER 2021-07-25 06:43 | Day surgery (SDC) | payer MEDICARE ==
[2021-07-24 10:37] VITALS: BMI 26.4
[2021-07-25] MEDS ORDERED: PROPOFOL 40 ML ONE (09:26)
== END 2021-07-25 10:43 | disposition home or self-care (01) ==
LOC: SDC 06:43
PROVIDERS: ATTEND Internal Medicine Cardiovascular Disease
PROC: B24BZZ4 Ultrasonography of Heart with Aorta, Transesophageal (ICD-10-PCS; principal; 2021-07-25)
PROC: 5A2204Z Restoration of Cardiac Rhythm, Single (ICD-10-PCS; 2021-07-25)
DX: I48.19 Other persistent atrial fibrillation (principal); I08.1 Rheumatic disorders of both mitral and tricuspid valves; I70.0 Atherosclerosis of aorta; I11.9 Hypertensive heart disease without heart failure; E78.5 Hyperlipidemia, unspecified; I25.10 Atherosclerotic heart disease of native coronary artery without angina pectoris; F17.220 Nicotine dependence, chewing tobacco, uncomplicated; E78.00 Pure hypercholesterolemia, unspecified; N40.0 Benign prostatic hyperplasia without lower urinary tract symptoms; C43.4 Malignant melanoma of scalp and neck; Z79.01 Long term (current) use of anticoagulants; Z79.82 Long term (current) use of aspirin; Z79.899 Other long term (current) drug therapy; Z95.1 Presence of aortocoronary bypass graft
CPT/HCPCS: 92960; 93005; 93010; 93312; J2704

== ENCOUNTER 2021-12-09 16:08 | Inpatient (IN) | payer MEDICARE ==
[2021-12-09 17:29] LABS: #Basophils 0.1 thou/uL (0.0-0.2); #Eosinphils 0.1 thou/uL (0.0-0.7); #Lymphocytes 0.7 thou/uL (1.20-3.40); #Monocytes 0.6 thou/uL (0.11-0.59); #Neutrophils 3.9 thou/uL (1.40-6.50); %Basophils 1.2 % (0.0-1.0); %Eosinophils 2.1 % (0.0-10.0); %Lymphocytes 12.9 % (21.0-51.0); %Monocytes 10.8 % (0.0-10.0); %Neutrophils 72.9 % (42.0-75.0); Hemoglobin 11.1 g/dL (14.0-18.0); Mean Corpuscular HGB CONC 32.8 g/dL (32.0-36.0); Mean Corpuscular Hemoglobin 30.8 pg (27.0-31.0); Mean Platelet Volume 6.9 fL (7.4-10.4); Platelet Count 244 thou/uL (130-400); RBC Distribution Width 15.8 % (11.5-14.5); Red Blood Cell (RBC) Count 3.59 mill/uL (4.70-6.10); White Blood Cell (WBC) Count 5.4 thou/uL (4.8-10.8)
[2021-12-09 17:41] LABS: ALT (SGPT) 12 U/L (8-55); AST (SGOT) 19 U/L (5-34); Albumin 3.4 g/dL (3.4-4.8); Alkaline Phosphatase 103 U/L (40-110); Anion Gap 13 mmol/L (10-20); BUN (Urea Nitrogen) 29 mg/dL (8.4-25.7); Bilirubin, Total 0.5 mg/dL (0.2-1.2); Calc. Creatinine Clearance 0 mL/min (70-130); Carbon Dioxide 27 mmol/L (23-31); Chloride 104 mmol/L (98-107); Globulin 3.2 g/dL (2.4-3.5); Glucose 105 mg/dL (83-110); Potassium 3.6 mmol/L (3.5-5.1); Protein, Total 6.6 g/dL (5.8-8.1); Sodium 140 mmol/L (136-145)
[2021-12-09 17:52] LABS: PTT 24.2 sec (22.9-36.1); Prothrombin Time 13.6 sec (12.0-14.7)
[2021-12-09] MEDS ORDERED: Dexamethasone 10 MG/ML VIAL ONE (17:52)
[2021-12-09] MEDS ORDERED: Acetaminophen 650 MG Suppository PR PRN (18:28)
[2021-12-09] MEDS ORDERED: Acetaminophen 325 MG TAB PO PRN (18:28)
[2021-12-09] MEDS: Lactated Ringer's 1,000 ML IV SCH (23:17)
[2021-12-10] MEDS ORDERED: Dronedarone HCl 400 MG TAB PO SCH (01:00)
[2021-12-10] MEDS ORDERED: Amlodipine 10 MG TAB PO SCH (01:00)
[2021-12-10 05:38] LABS: #Lymphocytes 0.6 thou/uL (1.20-3.40); #Monocytes 0.1 thou/uL (0.11-0.59); #Neutrophils 5.3 thou/uL (1.40-6.50); %Eosinophils 0.1 % (0.0-10.0); %Lymphocytes 9.3 % (21.0-51.0); %Monocytes 1.9 % (0.0-10.0); %Neutrophils 88.6 % (42.0-75.0); Hemoglobin 11.4 g/dL (14.0-18.0); Mean Corpuscular HGB CONC 32.4 g/dL (32.0-36.0); Mean Corpuscular Hemoglobin 30.5 pg (27.0-31.0); Mean Corpuscular Volume 94.2 fL (78.0-98.0); Mean Platelet Volume 7.1 fL (7.4-10.4); Platelet Count 248 thou/uL (130-400); RBC Distribution Width 15.8 % (11.5-14.5); Red Blood Cell (RBC) Count 3.72 mill/uL (4.70-6.10); White Blood Cell (WBC) Count 5.9 thou/uL (4.8-10.8)
[2021-12-10] MEDS ORDERED: hydrALAZINE 20 MG/ML VIAL SLOW IVP PRN (05:54)
[2021-12-10 06:00] LABS: Anion Gap 14 mmol/L (10-20); BUN (Urea Nitrogen) 30 mg/dL (8.4-25.7); Calc. Creatinine Clearance 50 mL/min (70-130); Carbon Dioxide 23 mmol/L (23-31); Chloride 104 mmol/L (98-107); Glucose 129 mg/dL (83-110); Iron 40 ug/dL (65-175); Iron Binding Capacity, Total 388 mcg/dL (261-462); Sodium 137 mmol/L (136-145)
[2021-12-10 06:22] LABS: Ferritin 44.61 ng/mL (22-322)
[2021-12-10] MEDS ORDERED: Dexamethasone 10 MG/ML VIAL SLOW IVP SCH (09:00)
[2021-12-10] MEDS ORDERED: Dexamethasone 4 mg/ml Vial SLOW IVP SCH (09:00)
[2021-12-10] MEDS ORDERED: FLU VACC QS2021-22(65YR UP)/PF 240 MCG/0.7 ML SYRINGE IM ONE (09:00)
[2021-12-10] MEDS ORDERED: Magnevist 469MG/ML 20 ML VIAL ONE (09:34)
[2021-12-10] MEDS: Lisinopril 20 MG TAB PO SCH (10:23)
[2021-12-10] MEDS: Famotidine/PF 20 mg/2ml Vial SLOW IVP SCH (10:24)
[2021-12-10] MEDS: Amlodipine 10 MG TAB PO SCH (10:25)
[2021-12-10] MEDS: Dronedarone HCl 400 MG TAB PO SCH ×2 (10:25→20:30)
[2021-12-10] MEDS: Atorvastatin Calcium 40 MG TAB PO SCH (10:25)
[2021-12-10] MEDS: Lactated Ringer's 1,000 ML IV SCH ×2 (10:27→21:19)
[2021-12-10 11:56] LABS: Bacteria/HPF None Seen HPF (None Seen); Bilirubin Negative (Negative); Blood, Urine 3+ (Negative); Clarity Turbid (Clear); Glucose, Urine (Dipstick) 30 mg/dL (Negative); Ketone, Urine Negative (Negative); Leukocyte Negative Leu/uL (Negative); Nitrite Negative (Negative); Protein, Urine (Dipstick) 70 mg/dL (Neg-Trace); RBC/HPF Greater than 50 HPF (0-3); Specific Gravity, Urine 1.024 (1.002-1.036); Squamous Epithelial None Seen HPF (0-3); Urobilinogen Normal mg/dL (Less than 2); WBC/HPF 0-3 HPF (0-3)
[2021-12-10 11:58] LABS: Urine Culture Reflex No No
[2021-12-10] MEDS: Dextrose 5%-Lactated Ringers 1,000 ML IV SCH ×2 (13:18→21:26)
[2021-12-10 15:13] LABS: SARS-CoV-2 PCR by NAA Not Detected (NotDetected)
[2021-12-10] MEDS: Dexamethasone 4 mg/ml Vial SLOW IVP SCH ×2 (16:40→20:30)
[2021-12-10] MEDS: Ferrous Sulfate 325 MG TAB PO SCH (16:40)
[2021-12-10] MEDS ORDERED: Haloperidol Lactate 5 MG/ML VIAL SLOW IVP SCH (22:00)
[2021-12-10] MEDS: Melatonin 3 MG TAB PO SCH (22:40)
[2021-12-11 06:24] LABS: #Lymphocytes 0.5 thou/uL (1.20-3.40); #Monocytes 0.2 thou/uL (0.11-0.59); #Neutrophils 5.7 thou/uL (1.40-6.50); %Eosinophils 0.1 % (0.0-10.0); %Lymphocytes 8.1 % (21.0-51.0); %Monocytes 3.3 % (0.0-10.0); %Neutrophils 88.5 % (42.0-75.0); Hemoglobin 10.1 g/dL (14.0-18.0); Mean Corpuscular HGB CONC 32.1 g/dL (32.0-36.0); Mean Corpuscular Hemoglobin 30.3 pg (27.0-31.0); Mean Corpuscular Volume 94.3 fL (78.0-98.0); Mean Platelet Volume 6.9 fL (7.4-10.4); Platelet Count 217 thou/uL (130-400); RBC Distribution Width 16.1 % (11.5-14.5); Red Blood Cell (RBC) Count 3.35 mill/uL (4.70-6.10); White Blood Cell (WBC) Count 6.5 thou/uL (4.8-10.8)
[2021-12-11 06:41] LABS: Anion Gap 10 mmol/L (10-20); BUN (Urea Nitrogen) 33 mg/dL (8.4-25.7); Calc. Creatinine Clearance 56 mL/min (70-130); Calcium 8.6 mg/dL (7.8-10.44); Carbon Dioxide 26 mmol/L (23-31); Chloride 103 mmol/L (98-107); Glucose 131 mg/dL (83-110); Potassium 3.9 mmol/L (3.5-5.1); Sodium 135 mmol/L (136-145)
[2021-12-11] MEDS: Dronedarone HCl 400 MG TAB PO SCH ×4 (09:39→21:32)
[2021-12-11] MEDS: Ferrous Sulfate 325 MG TAB PO SCH ×2 (09:39→16:26)
[2021-12-11] MEDS: Famotidine/PF 20 mg/2ml Vial SLOW IVP SCH (09:39)
[2021-12-11] MEDS: Dexamethasone 4 mg/ml Vial SLOW IVP SCH ×3 (09:40→21:35)
[2021-12-11] MEDS: Lisinopril 20 MG TAB PO SCH (09:40)
[2021-12-11] MEDS: Amlodipine 10 MG TAB PO SCH (09:40)
[2021-12-11] MEDS: Atorvastatin Calcium 40 MG TAB PO SCH (09:41)
[2021-12-11 12:38] VITALS: BMI 25.2
[2021-12-11] MEDS: Lactated Ringer's 1,000 ML IV SCH (14:12)
[2021-12-11] MEDS ORDERED: Haloperidol Lactate 5 MG/ML VIAL SLOW IVP SCH (19:45)
[2021-12-11] MEDS: Melatonin 3 MG TAB PO SCH (21:32)
[2021-12-12] MEDS ORDERED: Haloperidol Lactate 5 MG/ML VIAL SLOW IVP SCH (02:00)
[2021-12-12] MEDS: Lactated Ringer's 1,000 ML IV SCH ×2 (05:26→14:13)
[2021-12-12 06:05] LABS: #Lymphocytes 0.6 thou/uL (1.20-3.40); #Monocytes 0.3 thou/uL (0.11-0.59); #Neutrophils 7.1 thou/uL (1.40-6.50); %Eosinophils 0.1 % (0.0-10.0); %Lymphocytes 7.5 % (21.0-51.0); %Monocytes 3.9 % (0.0-10.0); %Neutrophils 88.6 % (42.0-75.0); Hemoglobin 10.6 g/dL (14.0-18.0); Mean Corpuscular HGB CONC 31.8 g/dL (32.0-36.0); Mean Corpuscular Hemoglobin 30.3 pg (27.0-31.0); Mean Corpuscular Volume 95.2 fL (78.0-98.0); Mean Platelet Volume 7.2 fL (7.4-10.4); Platelet Count 233 thou/uL (130-400); RBC Distribution Width 16.2 % (11.5-14.5); Red Blood Cell (RBC) Count 3.51 mill/uL (4.70-6.10)
[2021-12-12 06:12] LABS: Anion Gap 8 mmol/L (10-20); BUN (Urea Nitrogen) 37 mg/dL (8.4-25.7); Calc. Creatinine Clearance 61 mL/min (70-130); Calcium 8.3 mg/dL (7.8-10.44); Carbon Dioxide 28 mmol/L (23-31); Chloride 105 mmol/L (98-107); Glucose 121 mg/dL (83-110); Potassium 3.9 mmol/L (3.5-5.1); Sodium 137 mmol/L (136-145)
[2021-12-12] MEDS: Dronedarone HCl 400 MG TAB PO SCH ×2 (09:29→21:13)
[2021-12-12] MEDS: Lisinopril 20 MG TAB PO SCH (09:30)
[2021-12-12] MEDS: Famotidine/PF 20 mg/2ml Vial SLOW IVP SCH (09:31)
[2021-12-12] MEDS: Dexamethasone 4 mg/ml Vial SLOW IVP SCH ×3 (09:31→21:14)
[2021-12-12] MEDS: Atorvastatin Calcium 40 MG TAB PO SCH (09:32)
[2021-12-12] MEDS: Ferrous Sulfate 325 MG TAB PO SCH ×2 (09:32→17:06)
[2021-12-12] MEDS: Amlodipine 10 MG TAB PO SCH (09:34)
[2021-12-12] MEDS: Melatonin 3 MG TAB PO SCH (21:13)
[2021-12-13] MEDS: Lactated Ringer's 1,000 ML IV SCH (03:30)
[2021-12-13 05:56] LABS: #Lymphocytes 0.4 thou/uL (1.20-3.40); #Monocytes 0.3 thou/uL (0.11-0.59); #Neutrophils 5.1 thou/uL (1.40-6.50); %Eosinophils 0.1 % (0.0-10.0); %Monocytes 5.6 % (0.0-10.0); %Neutrophils 87.3 % (42.0-75.0); Hemoglobin 10.5 g/dL (14.0-18.0); Mean Corpuscular HGB CONC 32.3 g/dL (32.0-36.0); Mean Corpuscular Hemoglobin 30.3 pg (27.0-31.0); Mean Corpuscular Volume 93.6 fL (78.0-98.0); Mean Platelet Volume 7.2 fL (7.4-10.4); Platelet Count 217 thou/uL (130-400); RBC Distribution Width 16.1 % (11.5-14.5); Red Blood Cell (RBC) Count 3.47 mill/uL (4.70-6.10); White Blood Cell (WBC) Count 5.8 thou/uL (4.8-10.8)
[2021-12-13 06:13] LABS: Anion Gap 9 mmol/L (10-20); BUN (Urea Nitrogen) 34 mg/dL (8.4-25.7); Calc. Creatinine Clearance 72 mL/min (70-130); Calcium 8.1 mg/dL (7.8-10.44); Carbon Dioxide 26 mmol/L (23-31); Chloride 105 mmol/L (98-107); Glucose 118 mg/dL (83-110); Potassium 3.8 mmol/L (3.5-5.1); Sodium 136 mmol/L (136-145)
[2021-12-13] MEDS: Dronedarone HCl 400 MG TAB PO SCH (08:24)
[2021-12-13] MEDS: Atorvastatin Calcium 40 MG TAB PO SCH (08:24)
[2021-12-13] MEDS: Lisinopril 20 MG TAB PO SCH (08:25)
[2021-12-13] MEDS: Famotidine/PF 20 mg/2ml Vial SLOW IVP SCH (08:26)
[2021-12-13] MEDS: Ferrous Sulfate 325 MG TAB PO SCH (08:26)
[2021-12-13] MEDS: Amlodipine 10 MG TAB PO SCH (08:26)
[2021-12-13] MEDS: Dexamethasone 4 mg/ml Vial SLOW IVP SCH (08:26)
[2021-12-13 11:59] VITALS: BP 137/69; TEMP 97.4
== END 2021-12-13 13:25 | disposition hospice, home (50) | DRG 64 ==
LOC: ERS 16:08 → NEURO 17:51
PROVIDERS: ADMIT Family Medicine; ATTEND Family Medicine
DX: I61.1 Nontraumatic intracerebral hemorrhage in hemisphere, cortical (principal); Z20.822 Contact with and (suspected) exposure to COVID-19; Z66 Do not resuscitate; Z51.5 Encounter for palliative care; G93.6 Cerebral edema; N17.9 Acute kidney failure, unspecified; I50.32 Chronic diastolic (congestive) heart failure; C79.31 Secondary malignant neoplasm of brain; R47.01 Aphasia; I13.0 Hypertensive heart and chronic kidney disease with heart failure and stage 1 through stage 4 chronic kidney disease, or unspecified chronic kidney disease; G93.49 Other encephalopathy; N18.32 Chronic kidney disease, stage 3b; E86.0 Dehydration; D50.9 Iron deficiency anemia, unspecified; E78.5 Hyperlipidemia, unspecified; I48.91 Unspecified atrial fibrillation; I25.10 Atherosclerotic heart disease of native coronary artery without angina pectoris; N40.0 Benign prostatic hyperplasia without lower urinary tract symptoms; Z95.1 Presence of aortocoronary bypass graft; Z85.820 Personal history of malignant melanoma of skin; Z79.82 Long term (current) use of aspirin; Z79.899 Other long term (current) drug therapy; Z79.01 Long term (current) use of anticoagulants; Z82.3 Family history of stroke; Z98.890 Other specified postprocedural states; Z87.891 Personal history of nicotine dependence; Z98.49 Cataract extraction status, unspecified eye
CPT/HCPCS: 36415; 70450; 70553; 80048; 80053; 81001; 82607; 82728; 82746; 83540; 83550; 84484; 85025; 85610; 85730; 93005; 93010; 96374; A9579; J1100; J1630; J7120; S0028; U0003; U0005